=== PATIENT | female | born 1965 | race Caucasian/White ===

== ENCOUNTER 2019-07-27 17:50 | Emergency (ER) | payer BC ==
[2019-07-27] MEDS ORDERED: Acetaminophen/HYDROcodone 325-5 MG Tab PO ONE ×2 (17:51→18:31)
[2019-07-27 18:08] VITALS: BP 133/67; PULSE 73
--- NOTE | 2019-07-27 18:35 | EDM.PDOC ---
ED HPI GENERAL MEDICAL PROBLEM - General Chief Complaint: Upper Extremity Injury/Pain Stated Complaint: LT ARM INJURY Time Seen by Provider: 07/27/19 18:05 Source of Information: Reports: Patient History Limitations: Reports: No Limitations - History of Present Illness INITIAL COMMENTS - FREE TEXT/NARRATIVE: Mikala comes into [facility] ED with an injury to the LUE that occurred this afternoon when she tripped on a rug and fell forward onto the L arm. There is pain with any movement at the L shoulder, radiating into the L arm and forearm. There is no visible deformity, and CMS are intact. She has taken no analgesics. - Related Data Allergies Allergy/AdvReac Type Severity Reaction Status Date / Time cefixime [From Suprax] Allergy Nausea and Verified 10/05/14 09:38 Vomiting erythromycin base Allergy Nausea and Verified 10/05/14 09:38 Vomiting Home Meds: Home Meds Albuterol Sulfate [Albuterol Sulfate HFA] 2 puff IH QID 10/05/14 [History] Fluticasone Propionate [Flonase] 2 spray NS DAILY 10/05/14 [History] Ibuprofen [Advil] 200 mg PO Q6H PRN 10/05/14 [History] Multivitamin [Daily Multiple Vitamin] 1 tab PO DAILY 10/05/14 [History] Olopatadine [Patanol 0.1% Ophth Soln] 1 drop EYEBOTH BID 10/05/14 [History] Omeprazole [Prilosec] 20 mg PO DAILY 10/05/14 [History] Calcium Carbonate [Calcium] 500 mg PO DAILY 10/08/14 [History] FLUoxetine [PROzac] 20 mg PO DAILY 10/08/14 [History] Past Medical History Other Gastrointestinal History: COLON POLYPS AND DIVERTICULOSIS Social & Family History - Tobacco Use Smoking Status *Q: Former Smoker Used Tobacco, but Quit: Yes Month/Year Tobacco Last Used: 02/2014 - Caffeine Use Caffeine Use: Reports: Coffee - Recreational Drug Use Recreational Drug Use: No Review of Systems - Review of Systems Review Of Systems: Comprehensive ROS is negative, except as noted in HPI. ED EXAM, GENERAL - Physical Exam Exam: See Below Exam Limited By: Physical Impairment General Appearance: Alert, WD/WN, Moderate Distress Head: Atraumatic, Normocephalic Neck: Normal Inspection, Supple, Non-Tender, Full Range of Motion Respiratory/Chest: Lungs Clear, Chest Non-Tender Cardiovascular: Regular Rate, Rhythm, No Murmur Back Exam: Normal Inspection Extremities: Limited Range of Motion (LUE: no palpable deformity of the L shoulder, arm, elbow, forearm, wrist or hand; marked decrease w guarding at L shoulder; CMS intact) Neurological: Alert, Oriented, CN II-XII Intact, Normal Gait, No Motor/Sensory Deficits Psychiatric: Normal Affect, Normal Mood Skin Exam: Warm, Dry, Intact, Normal Color, No Rash Lymphatic: No Adenopathy Course - Vital Signs Text/Narrative:: I reviewed x rays of LUE and shoulder, revealing a surgical neck fracture of L humerus without dislocation. She was administered Hydrocodone 5/325 tab and p laced in a sling. Last Recorded V/S: Last Vital Signs Temp 36.6 C 07/27/19 17:50 Pulse 73 07/27/19 17:50 Resp 14 07/27/19 17:50 BP 133/67 07/27/19 17:50 Pulse Ox 100 07/27/19 17:50 - Orders/Labs/Meds Orders: Active Orders 24 hr Category Date Time Status Elbow Min 3V Lt [CR] Stat Exams 07/27/19 18:07 Ordered Humerus Lt [CR] Stat Exams 07/27/19 18:07 Ordered Shoulder Comp Lt [CR] Stat Exams 07/27/19 18:07 Ordered Departure - Departure Time of Disposition: 18:50 Disposition: Home, Self-Care 01 Condition: Fair Clinical Impression: Fracture of humerus Qualifiers: Encounter type: initial encounter Humerus Location: surgical neck Fracture type: closed Fracture morphology: 2-part Fracture alignment: nondisplaced Laterality: left Qualified Code(s): S42.225A - 2-part nondisplaced fracture of surgical neck of left humerus, initial encounter for closed fracture - Discharge Information *PRESCRIPTION DRUG MONITORING PROGRAM REVIEWED*: Not Applicable *COPY OF PRESCRIPTION DRUG MONITORING REPORT IN PATIENT LAZARO: Not Applicable Referrals: Mila Bedoya NP [Primary Care Provider] - Sepsis Event Note (ED) - Evaluation Sepsis Screening Result: No Definite Risk - Focused Exam Vital Signs: Vital Signs Temp Pulse Resp BP Pulse Ox 07/27/19 17:50 36.6 C 73 14 133/67 100 - Problem List & Annotations (1) Fracture of humerus SNOMED Code(s): 44032945 Code(s): S42.309A - UNSP FRACTURE OF SHAFT OF HUMERUS, UNSP ARM, INIT Status: Acute Current Visit: Yes Annotation/Comment:: Mikala has a surgical neck fx of L humerus. She was placed in a sling, administered Hydrocodone 5/325 tab and sent home with a small supply of same med, advised to sleep in recliner, cool packs for comfort, and follow up with PCP tomorrow. Qualifiers: Encounter type: initial encounter Humerus Location: surgical neck Fracture type: closed Fracture morphology: 2-part Fracture alignment: nondisplaced Laterality: left Qualified Code(s): S42.225A - 2-part nondisplaced fracture of surgical neck of left humerus, initial encounter for closed fracture - Problem List Review Problem List Initiated/Reviewed/Updated: Yes - My Orders Last 24 Hours: My Active Orders 07/27/19 18:07 Elbow Min 3V Lt [CR] Stat Humerus Lt [CR] Stat Shoulder Comp Lt [CR] Stat - Assessment/Plan Last 24 Hours: My Active Orders 07/27/19 18:07 Elbow Min 3V Lt [CR] Stat Humerus Lt [CR] Stat Shoulder Comp Lt [CR] Stat Plan: Follow up with PCP tomorrow. Managment is conservative, and prognosis is good.
--- NOTE | 2019-07-28 16:57 | CR ---
INDICATION: Left elbow injury after tripping on a rug and falling forward onto the left upper extremity. LEFT ELBOW: Three views of the left elbow were obtained 07/27/19 - no comparison. A displaced fracture, dislocation or other significant-appearing bone or joint abnormality was not identified - no elbow joint effusion was suggested. If symptoms persist - if occult fracture site is suspected clinically, reexamination in 10-14 days may be helpful. MTDD
--- NOTE | 2019-07-28 17:00 | CR ---
INDICATION: Left elbow injury after tripping on a rug and falling forward onto the left upper extremity. LEFT SHOULDER: Three views of the left shoulder were obtained 07/27/19 - no comparisons. There is an oblique and transverse fracture through the proximal shaft and anatomic neck area of the left humerus with minimal lateral offset of the distal fracture fragment and suggestion of anteromedial angulation at the fracture site. No other significant-appearing bone or joint abnormality was identified. IMPRESSION: Proximal humeral fracture with deformity. MTDD
--- NOTE | 2019-07-28 17:02 | CR ---
INDICATION: Left elbow injury after tripping on a rug and falling forward onto the left upper extremity. LEFT HUMERUS: Three views of the left humerus were obtained in frontal and lateral projections and revealed a fracture which is partly transverse and partly oblique through the proximal metaphysis and shaft of the left humerus with mild to moderate deformity. There is some offset and angulation at the fracture site. No other bone or joint abnormality was identified. MTDD
== END 2019-07-27 19:09 | disposition home or self-care (01) ==
LOC: FB.ED 17:50
DX: S42.225A 2-part nondisplaced fracture of surgical neck of left humerus, initial encounter for closed fracture (principal); S42.322A Displaced transverse fracture of shaft of humerus, left arm, initial encounter for closed fracture; S42.292A Other displaced fracture of upper end of left humerus, initial encounter for closed fracture; Z87.891 Personal history of nicotine dependence; Z88.1 Allergy status to other antibiotic agents; Z79.899 Other long term (current) drug therapy; W01.0XXA Fall on same level from slipping, tripping and stumbling without subsequent striking against object, initial encounter
CPT/HCPCS: 73030; 73060; 73080; 99283; A9270